=== PATIENT | male | born 1985 | race Two or more races ===

== ENCOUNTER 2019-01-15 15:15 | Observation (INO) | payer BC ==
[~2019-01-15] VITALS: Ht 182.9 cm; Wt 120.2 kg
--- OUTSIDE RECORDS SUMMARY | 2019-01-15 15:17 | XMS REPORT | Clinical Summary ---
Author Author [facility] Organization [facility] Address Unknown Phone Unavailable Care Team Providers Care Sales Manager Name Role Phone Asked, No Pcp PCP Unavailable Allergies No Known Allergies Medications No known medications Active Problems No known active problems Social History Date Tobacco Use Types Packs/Day Years Used Never Smoker Smokeless Tobacco: Never Used Alcohol Use Drinks/Week oz/Week Comments Yes Sex Assigned at Date Recorded Not on file Industry Job Start Date Occupation Not on file Not on file Not on file Travel End Travel History Travel Start No recent travel history available. Last Filed Vital Signs Not on file Plan of Treatment Health Maintenance Due Date Last Done Comments INFLUENZA VACCINE 01/23/2019 Results Not on fileafter 01/14/2018 Insurance Type Payer Benefit Subscriber ID Effective Phone Address Plan / Dates Group PPO BCBS BCBS xxxxxxxxxxxx 2012-P CHOICE resent PPO/JESSICA WALLACE PPO Advance Directives Patient has advance care planning documents on file. For more information, fabiola singer contact: Venkat Rey [address] [place] [address]
[2019-01-15 17:36] LABS: BASOPHILS % 0.5 % (0.0-1.0); EOSINOPHILS # (AUTO) 0.1 (0.0-0.4); EOSINOPHILS % 1.3 % (0.0-6.0); HEMATOCRIT 40.6 % (38.2-49.6); HEMOGLOBIN 13.2 g/dL (14.0-18.0); LYMPHOCYTES # (AUTO) 1.9 (1.0-3.2); LYMPHOCYTES % 24.3 % (18.0-39.1); MEAN CORPUSCULAR HEMOGLOBIN 26.7 pg (28-32); MEAN CORPUSCULAR HGB CONC 32.5 g/dL (31-35); MEAN CORPUSCULAR VOLUME 82.2 fL (81-99); MONOCYTES # (AUTO) 0.7 (0.2-0.8); NEUTROPHILS % 64.8 % (38.7-80.0); PLATELET COUNT 380 x10e3/uL (140-360); RED BLOOD COUNT 4.94 x10e6/uL (4.3-5.7)
[2019-01-15 17:54] LABS: ANION GAP 12.9 mmol/L (8-16); BLOOD UREA NITROGEN 9 mg/dL (7-26); BUN/CREATININE RATIO 9 (6-25); CALCIUM 9.8 mg/dL (8.4-10.2); CARBON DIOXIDE 24 mmol/L (22-29); CHLORIDE 105 mmol/L (98-107); CREATINE KINASE 3084 IU/L (30-200); CREATININE, SERUM 1.04 mg/dL (0.72-1.25); EST GLOMERULAR FILTRATION RATE > 60 ML/MIN (60-); GLUCOSE 84 mg/dL (74-118); POTASSIUM 3.9 mmol/L (3.5-5.1); SODIUM 138 mmol/L (136-145)
[2019-01-15] MEDS ORDERED: SODIUM CHLORIDE 0.9% 1000ML 1,000 ML IV SCH (19:00)
[2019-01-15] MEDS ORDERED: SODIUM CHLORIDE 0.9% 1000ML 1,000 ML IV STA (19:28)
[2019-01-15] MEDS ORDERED: ONDANSETRON HCL INJ 2MG/ML 2ML 2 MG/ML VIAL IV PRN (19:30)
--- OUTSIDE RECORDS SUMMARY | 2019-01-15 19:53 | XMS REPORT | Clinical Summary ---
Author Author [facility] Organization [facility] Address Unknown Phone Unavailable Care Team Providers Care Manager Clinic Name Role Phone Asked, No Pcp PCP [...] more information, fabiola singer contact: Venkat Rey [address] [place] [address]
--- NOTE | 2019-01-15 21:24 | NUR ---
PATIENT ARRIVED VIA WHEELCHAIR. PATIENT IS A&OX3. PATIENT IN NO PAIN OR DISTRESS. RECEIVED REPORT FROM LUCY AGUILAR NURSE.
[2019-01-15 21:30] VITALS: BP 135/81
[2019-01-15] MEDS: SODIUM CHLORIDE 0.9% 1000ML 1,000 ML IV SCH (21:44)
--- NOTE | 2019-01-15 22:04 | NUR ---
CALLED AND TALKED TO DR. TREVINO ABOUT PATIENT BEING ON TELE BECAUSE HE IS HERE FOR CHEST PAIN AND RHABDO. DR. TREVINO SAID TO PLACE THE PATIENT ON TELE.
[2019-01-15] MEDS ORDERED: BUPROPION XL150 MG PO (22:18)
[2019-01-15] MEDS ORDERED: BUSPIRONE HCL30 MG PO (22:18)
[2019-01-15 22:20] VITALS: BP 135/81
[2019-01-15 22:39] VITALS: BP 135/81
--- NOTE | 2019-01-15 23:09 | NUR ---
CALLED AND TALKED TO DR. TREVINO, PATIENT WANTS SOMETHING FOR HEARTBURN. DR TREVINO ORDER PROTONIX FOR HEARTBURN, NORCO FOR PAIN, AND MELATONIN FOR INSOMNIA.
[2019-01-15] MEDS ORDERED: MELATONIN 3 MG TAB PO PRN (23:15)
[2019-01-15] MEDS ORDERED: HYDROCODONE/APAP 5MG-325MG TAB PO PRN (23:15)
[2019-01-15] MEDS ORDERED: PANTOPRAZOLE SOD 40 MG TABEC PO PRN (23:15)
[2019-01-16] VITALS: BP 129/80
[2019-01-16 02:58] LABS: CREATINE KINASE 2286 IU/L (30-200)
[2019-01-16] MEDS: SODIUM CHLORIDE 0.9% 1000ML 1,000 ML IV SCH ×5 (03:53→22:23)
[2019-01-16 04:00] VITALS: BP 109/67
[2019-01-16 05:59] LABS: BASOPHILS % 0.5 % (0.0-1.0); EOSINOPHILS # (AUTO) 0.2 (0.0-0.4); EOSINOPHILS % 2.8 % (0.0-6.0); HEMATOCRIT 34.9 % (38.2-49.6); HEMOGLOBIN 10.9 g/dL (14.0-18.0); LYMPHOCYTES # (AUTO) 2.5 (1.0-3.2); LYMPHOCYTES % 41.4 % (18.0-39.1); MEAN CORPUSCULAR HEMOGLOBIN 26.5 pg (28-32); MEAN CORPUSCULAR HGB CONC 31.2 g/dL (31-35); MEAN CORPUSCULAR VOLUME 84.7 fL (81-99); MONOCYTES # (AUTO) 0.6 (0.2-0.8); MONOCYTES % 9.9 % (4.4-11.3); NEUTROPHILS # (AUTO) 2.7 (2.1-6.9); NEUTROPHILS % 45.2 % (38.7-80.0); PLATELET COUNT 310 x10e3/uL (140-360); RED BLOOD COUNT 4.12 x10e6/uL (4.3-5.7); RED CELL DISTRIBUTION WIDTH 12.9 % (11.7-14.4)
[2019-01-16 06:29] LABS: ALANINE AMINOTRANSFERASE 25 IU/L (0-55); ALBUMIN 3.3 g/dL (3.5-5.0); ALKALINE PHOSPHATASE 38 IU/L (40-150); ANION GAP 10.8 mmol/L (8-16); BLOOD UREA NITROGEN 10 mg/dL (7-26); BUN/CREATININE RATIO 10 (6-25); CALCIUM 8.2 mg/dL (8.4-10.2); CARBON DIOXIDE 24 mmol/L (22-29); CHLORIDE 106 mmol/L (98-107); EST GLOMERULAR FILTRATION RATE > 60 ML/MIN (60-); GLUCOSE 98 mg/dL (74-118); POTASSIUM 3.8 mmol/L (3.5-5.1); SODIUM 137 mmol/L (136-145)
--- NOTE | 2019-01-16 06:53 | NUR ---
Gave report to oncoming nurse. Patient in asleep in bed. call light within reach.
--- NOTE | 2019-01-16 07:31 | NUR ---
Rcvd patient in report this am. Patient is asleep in bed at this time. No s/s of distress noted
[2019-01-16 08:29] VITALS: BP 127/73
--- NOTE | 2019-01-16 09:00 | NUR ---
Patient is AAOx3. Patient lung maldonado clear to auscultation. Bowel sounds present x4. No c/o chest pain at this time. IV fluids infusing in right AC 20g IV. patient ambulates on his own.
[2019-01-16 09:29] LABS: CHOL/HDL RATIO 6.3 (3.9-4.7)
[2019-01-16 09:48] LABS: CREATINE KINASE 1933 IU/L (30-200)
--- NOTE | 2019-01-16 09:56 | NUR ---
Patient went for stress test at this time.
[2019-01-16 10:07] VITALS: BP 127/73
--- NOTE | 2019-01-16 10:53 | NUR ---
Patient returned from stress test at this time. NO c/o chest pain at this time.
[2019-01-16 12:23] VITALS: BP 128/74
--- NOTE | 2019-01-16 16:38 | Consultation ---
DATE OF CONSULTATION: 01/16/2019 Cardiac Consultation. REASON FOR CONSULTATION: Chest pain and elevated CK. HISTORY: A 33-year-old gentleman, obese, known with anxiety, depression. On Sunday, he went for workup, he over did, all his muscles were sore. On Sunday, he was sitting. He noted his heart rate to be at 100 and he was not feeling well. He went to the emergency room. His CK total was elevated. His lab okay. They told him on initial EKG, portable myocardial infarction. Second EKG is normal. They dismissed him home after being in ER. Yesterday, again all his muscle aching and soring. He felt his heart rate is little bit fast and he had not feeling well and he had what it seems to be heartburn or possible "chest pain." The patient was alarmed. He went to the emergency room. His total CK was in the 3000 ranges. Troponin, MB, both are normal. Admitted for further management. Cardiac consultation is obtained. I visited the patient, whom he denied having any exertional angina. He was doing well till he did over exercise and intense program on Sunday and he is aching all over and not feeling well since then. He is very apprehensive and he is very anxious. He denied using any drugs. He denied smoking. Socially, maybe he will get a drink. He is fully functional and fully employed. REVIEW OF SYSTEMS: Done to all 14 systems, will be summarized for clarity. GENERAL: No fever, no chills. HEENT: No vision problem. No hearing problem. PULMONARY: No cough. No hemoptysis. CARDIAC: No exertional angina. No orthopnea. No paroxysmal nocturnal dyspnea. No syncope or presyncope, possible palpitation every now and then. GI: No constipation, no diarrhea. Since he did that exercise, he is having abdominal cramps and epigastric crampy pain. No hematemesis. No melena. : No hematuria, no dysuria. MUSCULOSKELETAL: All his muscles sore since the training. NEUROLOGICAL: No seizure. No headache. No localized weakness. PSYCHIATRIC: The patient is having depression and anxiety, [facility]. ENDOCRINE: No polyuria. No polydipsia. No history of diabetes. HEMATOLOGY: No easy bruising or bleeding. SOCIAL HISTORY: He is single, he is nonsmoker. He rarely drinking alcohol. He does not use any drugs. He is employed in [employer]. HOME MEDICATIONS: Buspirone and Buspar. ALLERGIES: NONE. PAST MEDICAL HISTORY: 1. Depression and anxiety. 2. Obesity. FAMILY HISTORY: Father is diabetic at age 62. He had already PCI recently. Mother at age 58, healthy. One brother with schizophrenia. No sister, no children. PHYSICAL EXAMINATION: GENERAL: Obese gentleman in no acute distress. VITAL SIGNS: Height of 6 feet. Weight of 265 pounds. Blood pressure 100/60, heart rate of 80, respiratory rate of 18, afebrile. HEENT: Pupils are equal and reactive. NECK: No elevation of jugular venous pulsation. No bruit. CHEST: Clear to auscultation and percussion. HEART: PMI, 5th left intercostal space. Normal first and second heart sound. ABDOMEN: Soft with good bowel sounds. No organomegaly. No abdominal bruits. EXTREMITIES: No cyanosis, no clubbing, no edema. NEUROLOGIC: Awake, alert, oriented. No motor or sensory deficits. NEUROLOGIC: Nonfocal. LABORATORY DATA: Sodium of 137, potassium 3.8, BUN of 10, creatinine of 1, CO2 of 24. White blood cell count of 5.9, hemoglobin of 10.9, hematocrit 34%, and platelet count of 310,000. EKG showing no acute changes, normal sinus rhythm. IMPRESSION AND PLAN: 1. Rhabdomyolysis. 2. Obesity. 3. Depression and anxiety. 4. Atypical chest pain. 5. Hemoglobin and hematocrit are on lower side 10.9 and 35%, which is unusual for such patient in this age. However, the patient received "lot of fluid" for his rhabdomyolysis. This need also to be observed. The patient denied having hematemesis or melena. From a cardiac point of view, the patient will have an echocardiogram. We will have stress test who will be kept on telemetry. Depending on his course and depending on his symptoms, further steps to be done. MD MARSHAL Berrios/DARÍO /[id number]
--- NOTE | 2019-01-16 17:28 | Operative Report ---
DATE OF PROCEDURE: 01/16/2019 SURGEON: Tay Bailon MD TITLE OF THE TEST: Cardiac stress test. TECHNICAL DETAILS: The protocol is Yuan with target heart rate at 161 per minute. RESULTS: 1. The patient exercised for total of 9 minutes 16 seconds. 2. Heart rate increased from 70 per minute to 169 per minute. 3. Blood pressure increased from 110/80 to 157/75. 4. No chest pain. 5. No EKG changes. IMPRESSION: Negative cardiac stress test with good exercise tolerance. Limitations are discussed and explained. Tay Bailon MD MOJ/MODL /[id number]
--- NOTE | 2019-01-16 18:55 | NUR ---
RECEIVED REPORT FROM PREVIOUS NURSE. PATIENT IN BED. CALL LIGHT WITHIN REACH
[2019-01-16 20:00] VITALS: BP 123/65
[2019-01-17] VITALS: BP 119/66
[2019-01-17 04:00] VITALS: BP 103/61
[2019-01-17] MEDS: SODIUM CHLORIDE 0.9% 1000ML 1,000 ML IV SCH (04:12)
[2019-01-17 05:51] LABS: BASOPHILS % 0.3 % (0.0-1.0); EOSINOPHILS # (AUTO) 0.2 (0.0-0.4); EOSINOPHILS % 3.3 % (0.0-6.0); HEMATOCRIT 35.2 % (38.2-49.6); HEMOGLOBIN 11.2 g/dL (14.0-18.0); LYMPHOCYTES # (AUTO) 2.3 (1.0-3.2); LYMPHOCYTES % 37.8 % (18.0-39.1); MEAN CORPUSCULAR HEMOGLOBIN 26.8 pg (28-32); MEAN CORPUSCULAR HGB CONC 31.8 g/dL (31-35); MEAN CORPUSCULAR VOLUME 84.2 fL (81-99); MONOCYTES # (AUTO) 0.6 (0.2-0.8); MONOCYTES % 10.3 % (4.4-11.3); NEUTROPHILS % 48.1 % (38.7-80.0); PLATELET COUNT 305 x10e3/uL (140-360); RED BLOOD COUNT 4.18 x10e6/uL (4.3-5.7)
[2019-01-17 06:16] LABS: ALANINE AMINOTRANSFERASE 21 IU/L (0-55); ALBUMIN 3.2 g/dL (3.5-5.0); ALBUMIN/GLOBULIN RATIO 1.1 (0.8-2.0); ALKALINE PHOSPHATASE 36 IU/L (40-150); ANION GAP 12.1 mmol/L (8-16); BLOOD UREA NITROGEN 10 mg/dL (7-26); BUN/CREATININE RATIO 11 (6-25); CALCIUM 8.2 mg/dL (8.4-10.2); CARBON DIOXIDE 22 mmol/L (22-29); CHLORIDE 109 mmol/L (98-107); CREATINE KINASE 1196 IU/L (30-200); EST GLOMERULAR FILTRATION RATE > 60 ML/MIN (60-); GLUCOSE 100 mg/dL (74-118); POTASSIUM 4.1 mmol/L (3.5-5.1); SODIUM 139 mmol/L (136-145)
--- NOTE | 2019-01-17 07:23 | NUR ---
GAVE REPORT TO ONCOMING NURSE. CALL LIGHT WITHIN REACH. PATIENT IN BED.
[2019-01-17 07:43] VITALS: BP 109/61
--- NOTE | 2019-01-17 09:35 | NUR ---
Rounds by attending and cardiology and both cleared patient for discharge.
--- NOTE | 2019-01-17 09:50 | NUR ---
Patient discharged from facility to home. Reviewed all discharge paperwork with patient, follow up appts and no rx's needed. Removed IV at 0945. Pressure dressing applied.
--- NOTE | 2019-01-17 12:38 | Discharge Summary ---
HOSPITAL COURSE: Mr. Marrero is a 33-year-old man with history of depression and anxiety who over exercised on Sunday. He had muscle pain. He notes he had some palpitations, so he went to the emergency room. They told him he may have an WI, but he said they sent him home on Sunday. He is still having muscle aches, so he came to the emergency room. CPK was around 4000. He was complaining of chest pain. A cardiology consult was requested. He was seen by Dr. Bailon, had a stress test done that came back negative. He received IV fluids and the plan is to discharge him home today. PHYSICAL EXAMINATION: GENERAL: Today, he is awake and alert. He is feeling better. VITAL SIGNS: Temperature is 96.5. Blood pressure is 109/61. HEART: Regular rate. LUNGS: Clear to auscultation. ABDOMEN: Soft. LABORATORY DATA: On the blood work, white count 6.14, hemoglobin 11.2, and hematocrit 35.2. Potassium 4.1. Creatinine is 0.90. CPK went down to 1196. DISCHARGE DIAGNOSES: 1. Rhabdomyolysis due to excessive exercise. 2. Atypical trace chest pain. 3. Obesity. 4. Depression and anxiety. PLAN: The plan at present time is to discharge the patient home. Advised not to exercise for a couple of weeks, to drink lot of fluids, and to follow up with PCP next week. He is to call me or come back to the emergency room if any recurrent problem. MD CASSIA Hernandez/DARÍO /[id number]
== END 2019-01-17 09:53 | disposition home or self-care (01) ==
LOC: ER 15:15 → ERHOLD 19:51 → MED/SURG 21:25
PROVIDERS: ADMIT Internal Medicine; ATTEND Internal Medicine
DX: M62.82 Rhabdomyolysis (principal); R07.89 Other chest pain; E66.9 Obesity, unspecified; Z68.35 Body mass index [BMI] 35.0-35.9, adult; F32.9 Major depressive disorder, single episode, unspecified; F41.9 Anxiety disorder, unspecified
CPT/HCPCS: 36415 ×3; 80048; 80053 ×2; 80061; 82550 ×3; 82553 ×2; 84484 ×2; 85025 ×3; 93005; 93017; 93306; 99284; G0378 ×3; J7030 ×3; S0164